=== PATIENT | female | born 1980 | race Asian ===

== ENCOUNTER 2019-10-07 01:06 | Emergency (ER) | payer BC ==
[~2019-10-07] VITALS: Ht 144.8 cm; Wt 58.1 kg
[2019-10-07 01:42] VITALS: BP 126/76
--- NOTE | 2019-10-07 02:11 | Emergency Room Report ---
History of Present Illness General Chief Complaint: Abdominal Pain Source: Patient Present Illness HPI Patient ate out on Friday night. She was awakened during the middle of the night with epigastric pain radiating to both sides of her upper abdomen. She had felt nauseated but did not vomit. There is no change in bowels. She has taken Tylenol Mylanta Tums. The pain initially was 5/10. It is been intermittent. It started coming back tonight and she returned to the emergency department. She is status post cholecystectomy. She denies any fevers or chills. There are no upper respiratory symptoms. No sore throat, chest pain, palpitations, dysuria, shortness of breath, joint pain, rashes, depression, anxiety, visual changes, dizziness, headache. Allergies: Coded Allergies: No Known Allergies (Unverified , 10/07/19) Patient History Past Medical History: see triage record Past Surgical History: seth Social History: Denies: smoking, alcohol use, drug use Social History Narrative [employer] Last Menstrual Period: 09/15/2019 Now: No Reviewed Nursing Documentation: PMH: Agreed; PSxH: Agreed Review of Systems All Other Systems: negative except mentioned in HPI Physical Exam Vital Signs Date Time Temp Pulse Resp B/P (MAP) Pulse Ox O2 Delivery O2 Flow Rate FiO2 10/07/19 01:25 97.9 65 18 124/85 (98) 99 Room Air Sp02 EP Interpretation: reviewed, normal General Appearance: well appearing, no apparent distress, GCS 15 Head: normocephalic Eyes: bilateral eye normal inspection, bilateral eye PERRL, bilateral eye EOMI ENT: moist mucus membranes Neck: supple Respiratory: lungs clear, normal breath sounds Cardiovascular #1: regular rate, rhythm Cardiovascular #2: 2+ radial (R) Gastrointestinal: normal inspection, normal bowel sounds, no mass, non- distended, no rebound, tenderness - Epigastric, other - Minimal guarding Genitourinary: no CVA tenderness Musculoskeletal: back normal, normal range of motion, gait/station normal Neurologic: alert, oriented x3, grossly normal Psychiatric: mood/affect normal Skin: no rash, warm/dry Medical Decision Making Diagnostic Impression: Primary Impression: Epigastric pain ER Course Patient presents with epigastric pain. Differential includes gastritis, pancreatitis, reflux esophagitis amongst others. Evaluation with labs. No imaging at this time as she is status post cholecystectomy. Patient will be treated with IV hydration, Zofran and Pepcid. Consideration of adding Mylanta and viscous lidocaine if pain returns here. Labs remarkable for normal CBC and CMP. Lipase normal. Improved with treatment. States pain is resolved. Still concerned. Discussed treatment plan with patient and the need for outpatient reevaluation. Patient stable for outpatient observation and treatment Laboratory Tests Test 10/07/19 01:40 10/07/19 02:15 Urine Color Pale yellow Urine Appearance Clear Urine pH 5 (4.5-8.0) Urine Specific [place] 1.015 (1.005-1.035) Urine Protein Negative (NEGATIVE) Urine Glucose (UA) Negative (NEGATIVE) Urine Ketones Negative (NEGATIVE) Urine Blood 1+ (NEGATIVE) H Urine Nitrite Negative (NEGATIVE) Urine Bilirubin Negative (NEGATIVE) Urine Urobilinogen Normal MG/DL (0.0-1.0) Urine Leukocyte Esterase Negative (NEGATIVE) Urine RBC 2-4 /HPF (0 - 2) H Urine WBC 0-2 /HPF (0 - 2) Urine Squamous Epithelial Cells Few /LPF (NONE/OCC) Urine Bacteria None /HPF (NONE) Urine HCG, Qualitative Negative (NEGATIVE) White Blood Count 6.9 K/UL (4.8-10.8) Red Blood Count 4.59 M/UL (4.20-5.40) Hemoglobin 13.6 G/DL (12.0-16.0) Hematocrit 39.1 % (37.0-47.0) Mean Corpuscular Volume 85 FL (80-99) Mean Corpuscular Hemoglobin 29.7 PG (27.0-31.0) Mean Corpuscular Hemoglobin Concent 34.9 G/DL (32.0-36.0) Red Cell Distribution Width 11.0 % (11.6-14.8) L Platelet Count 211 K/UL (150-450) Mean Platelet Volume 6.3 FL (6.5-10.1) L Neutrophils (%) (Auto) 58.2 % (45.0-75.0) Lymphocytes (%) (Auto) 32.0 % (20.0-45.0) Monocytes (%) (Auto) 8.4 % (1.0-10.0) Eosinophils (%) (Auto) 1.0 % (0.0-3.0) Basophils (%) (Auto) 0.4 % (0.0-2.0) Prothrombin Time 9.9 SEC (9.30-11.50) Prothrombin Time INR 0.9 (0.9-1.1) Activated Partial Thromboplast Time 27 SEC (23-33) Sodium Level 141 MMOL/L (136-145) Potassium Level 4.0 MMOL/L (3.5-5.1) Chloride Level 106 MMOL/L (98-107) Carbon Dioxide Level 31 MMOL/L (21-32) Anion Gap 4 mmol/L (5-15) L Blood Urea Nitrogen 8 mg/dL (7-18) Creatinine 0.5 MG/DL (0.55-1.30) L Estimate Glomerular Filtration Rate > 60 mL/min (>60) Glucose Level 103 MG/DL (74-106) Calcium Level 8.5 MG/DL (8.5-10.1) Total Bilirubin 0.3 MG/DL (0.2-1.0) Aspartate Amino Transferase (AST) 38 U/L (15-37) H Alanine Aminotransferase (ALT) 83 U/L (12-78) H Alkaline Phosphatase 110 U/L (46-116) Total Protein 7.1 G/DL (6.4-8.2) Albumin 3.3 G/DL (3.4-5.0) L Globulin 3.8 g/dL Albumin/Globulin Ratio 0.9 (1.0-2.7) L Lipase 101 U/L (73-393) Rhythm Strip Diag. Results EP Interpretation: yes Rhythm: NSR, no PVC's, no ectopy Last Vital Signs Date Time Temp Pulse Resp B/P (MAP) Pulse Ox O2 Delivery O2 Flow Rate FiO2 10/07/19 04:24 98.2 76 18 122/70 99 Room Air Status: improved Disposition: HOME, SELF-CARE Condition: Improved Scripts Lidocaine HCl 2% Viscous (Lidocaine HCl 2% Viscous) 100 Ml Solution 10 ML ORAL QID PRN for epigastric pain, #60 ML mix with Mylanta Prov: Sam Christie MD 10/07/19 Famotidine* (Pepcid 20mg tablet*) 20 Mg Tablet 20 MG ORAL DAILY, #20 TAB 0 Refills Prov: Sam Christie MD 10/07/19 Acetaminophen With Codeine (T#3) (TYLENOL #3 TAB*) Y Tab 1 TAB ORAL Q6HR PRN for For Pain, #8 TAB Prov: Sam Christie MD 10/07/19 Ondansetron Odt* (ZOFRAN ODT*) 4 Mg Tab.rapdis 4 MG BC EVERY 8 HOURS PRN for Nausea & Vomiting, #8 TAB 0 Refills Prov: Sam Christie MD 10/07/19 Referrals: NOT CHOSEN IPA/,REFERRING (PCP) Sam Christie MD Oct 07, 2019 02:11
[2019-10-07 02:20] LABS: APPEARANCE,URINE CLEAR; BILIRUBIN, URINE NEGATIVE (NEGATIVE); COLOR,URINE PALE YELLOW; GLUCOSE, URINE (UA) NEGATIVE (NEGATIVE); KETONES,URINE NEGATIVE (NEGATIVE); LEUKOCYTE ESTERASE ,URINE NEGATIVE (NEGATIVE); NITRITE,URINE NEGATIVE (NEGATIVE); PH,URINE 5 (4.5-8.0); PROTEIN,URINE NEGATIVE (NEGATIVE); UROBILINOGEN,URINE NORMAL MG/DL (0.0-1.0)
[2019-10-07 02:34] LABS: BASOPHILS % (AUTO) 0.4 % (0.0-2.0); HEMATOCRIT 39.1 % (37.0-47.0); HEMOGLOBIN 13.6 G/DL (12.0-16.0); MEAN CORPUSCULAR VOLUME 85 FL (80-99); MONOCYTES % (AUTO) 8.4 % (1.0-10.0); NEUTROPHILS % (AUTO) 58.2 % (45.0-75.0); PLATELET COUNT 211 K/UL (150-450); RED BLOOD COUNT 4.59 M/UL (4.20-5.40); WHITE BLOOD COUNT 6.9 K/UL (4.8-10.8)
[2019-10-07 02:44] LABS: INR 0.9 (0.9-1.1)
[2019-10-07 02:45] LABS: ANION GAP 4 mmol/L (5-15); BLOOD UREA NITROGEN 8 mg/dL (7-18); CALCIUM 8.5 MG/DL (8.5-10.1); CARBON DIOXIDE 31 MMOL/L (21-32); CHLORIDE 106 MMOL/L (98-107); CREATININE 0.5 MG/DL (0.55-1.30); SODIUM 141 MMOL/L (136-145)
[2019-10-07] MEDS ORDERED: Mylanta II UD 30ml ORAL ONE (02:45)
[2019-10-07] MEDS ORDERED: DiphenhydrAMINE 50mg/ml Inj IVP ONE (02:45)
[2019-10-07] MEDS ORDERED: Metoclopramide 10mg/2ml Inj IVP ONE (02:45)
[2019-10-07] MEDS ORDERED: Lidocaine 2% Visc 15ml soln ORAL ONE (02:45)
[2019-10-07 02:49] LABS: ALANINE AMINOTRANSFERASE 83 U/L (12-78); ALBUMIN 3.3 G/DL (3.4-5.0); ALBUMIN/GLOBULIN RATIO 0.9 (1.0-2.7); ALKALINE PHOSPHATASE 110 U/L (46-116); ASPARTATE AMINO TRANSFERASE 38 U/L (15-37); BILIRUBIN,TOTAL 0.3 MG/DL (0.2-1.0)
[2019-10-07] MEDS ORDERED: LIDOCAINE VISC100 ML ORAL (04:10)
[2019-10-07] MEDS ORDERED: ONDANSETRON ODT4 MG BC (04:10)
[2019-10-07] MEDS ORDERED: ACETAMINOPHEN-1 EAC1 ORAL (04:10)
[2019-10-07] MEDS ORDERED: FAMOTIDINE20 MG ORAL (04:10)
[2019-10-07 04:24] VITALS: BP 122/70
== END 2019-10-07 04:24 | disposition home or self-care (01) ==
LOC: EMR 02:03
DX: R10.13 Epigastric pain (principal)
CPT/HCPCS: 36415; 80053; 81003; 81025; 83690; 85025; 85610; 85730; 96361; 96374; 96375; 99284; J1200; J2405; J2765; J7030; S0028